=== PATIENT | female | born 1955 | race Caucasian/White ===

== ENCOUNTER 2016-07-02 08:16 | Day surgery (SDC) | payer BC ==
[~2016-07-02 08:16] MED LIST: CHOL1TAB42 PO; FERR325T PO; FURO40TA PO; GLUCOMTESTSTRIPS XX; GLUCTES12; INSU1INJ5 SQ; LACT10SO47 PO; LANC1MIS62; LEVE500 PO; LEVEMIR SQ; LIPI80TA PO; MAGN400T2 PO; POTA10TA8 PO; PRIL20TA2 PO; REME15TA PO; SPIR50TA PO; THERM PO; XIFA550T4 PO; [UNRECOGNIZED DRUG - CODE]; [UNRECOGNIZED DRUG - CODE]
[2016-07-02 08:51] VITALS: BP 161/83; PULSE 105; RESP 14; TEMP 97.8; O2SAT 98
--- NOTE | 2016-07-02 12:06 | RADRPT ---
EXAM DATE/TIME: 07/02/2016 09:02 [facility] COMPARISON: No previous studies available for comparison. EXTERNAL COMPARISON : [facility], CT ABDOMEN, W CONTRAST, July 01, 2016 US LIVER, April 24, 2016. MRI ABDOMEN W & W/O CONTRAST, April 03, 2016. INDICATIONS : Ascites. MEDICAL HISTORY : Cirrhosis. Osteoporosis. Ascites. Pancreatitis. Arthritis. Anemia. Hepatic encephalopathy. AMS. Sei zures. [place]. Degenerative disc disease. Diabetic. SURGICAL HISTORY : Tonsillectomy. Back surgery. Excision liver cancer. Left hip fracture. Carpel tunnel repair. Paracent esis. ENCOUNTER: [facility] ACUITY: 2 months PAIN SCORE: 6/10 LOCATION: [facility]. AREA EVALUATED: [facility] FINDINGS: Imaging of the abdomen and pelvis was performed to evaluate for ascites for possible paracentesis. CONCLUSION: There is not enough fluid for safe paracentesis. Patient is less distended than we p rior and has lost 6 pounds. She will call me if she needs is done this week. Lorenzo Anglin MD FACR on July 02, 2016 at 12:03 Board Certified Radiologist. This report was verified electronically.
[2016-07-03] MEDS ORDERED: POTA-243 PO (16:14)
[2016-07-10] MEDS ORDERED: INSU1INJ5 SQ (14:10)
== END 2016-07-02 10:30 | disposition home or self-care (01) ==
LOC: HRAD 08:16 → HRIP 08:21 → HRAD 10:30
PROVIDERS: ATTEND Hospitalist
DX: R18.8 Other ascites (principal); D64.9 Anemia, unspecified; E11.9 Type 2 diabetes mellitus without complications; K85.90 Acute pancreatitis without necrosis or infection, unspecified; M81.0 Age-related osteoporosis without current pathological fracture; M19.90 Unspecified osteoarthritis, unspecified site
CPT/HCPCS: 76705

== ENCOUNTER 2016-09-11 14:14 | Emergency (ER) | payer BC ==
[~2016-09-11] VITALS: Ht 149.9 cm; Wt 50.0 kg
[~2016-09-11 14:14] MED LIST changes: -LEVEMIR SQ; +POTA-243 PO
[2016-09-11 14:25] VITALS: BP 132/74; PULSE 89; RESP 16; TEMP 98.1; O2SAT 98
--- NOTE | 2016-09-11 14:38 | PD ---
HPI Chief Complaint: Abdominal Pain Time Seen by Provider: 14:38 Travel History International Travel<30 days: No Contact w/Intl Traveler<30days: No Traveled to known affect area: No History of Present Illness HPI 61-year-old female presents to the emergency department for evaluation of left- sided abdominal pain that started Thursday night, 2 days ago. She denies any fevers. She states she vomited once yesterday. No diarrhea. She denies any chest pain or shortness of breath. She currently rates the pain 10/10. Patient does have a history of diverticulitis over 13 years ago, diabetes, liver cirrhosis, liver cancer 14 years ago and is currently in remission, depression, hepatic encephalopathy. She states she had a shunt placed for her liver cirrhosis in July at [facility]. She states that her weight has been stable since. Patient does have a history of the shunt placement, tubal ligation, hip replacement, several paracentesis is in the past. Patient denies any alcohol use. No drug use. She does smoke 3 cigarettes a day. Patient states that she is concerned that she has diverticulitis due to eating walnuts recently. PFSH Past Medical History Arthritis: Yes Asthma: No Autoimmune Disease: No Anxiety: No Depression: Yes Heart Rhythm Problems: No Cancer: Yes (liver) Cardiovascular Problems: Yes High Cholesterol: No Chemotherapy: No Chest Pain: No Congestive Heart Failure: No Cirrhosis: Yes COPD: No Cerebrovascular Accident: No Diabetes: Yes Patient Takes Glucophage: No Diminished Hearing: No Endocrine: Yes Gastrointestinal Disorders: Yes (pancreatitis) GERD: No Genitourinary: Yes Headaches: No Hiatal Hernia: No Hypertension: No Immune Disorder: No Implanted Vascular Access Dvce: Yes Kidney Stones: No Musculoskeletal: Yes (degenerative disc dx of l4-5) Neurologic: Yes (hepatic encephalopathy/ altered mental status) Psychiatric: Yes Reproductive: No Respiratory: Yes Immunizations Current: Yes Migraines: No Radiation Therapy: No Renal Failure: No Seizures: Yes (jul 2015) Sickle Cell Disease: No Sleep Apnea: No Thyroid Disease: No Ulcer: No Tetanus Vaccination: > 5 Years Influenza Vaccination: Yes ?: Not LMP: OVER 10 YEARS AGO : 4 Para: 3 : 2 Past Surgical History Abdominal Surgery: Yes (excision liver CA) AICD: No Arteriovenous Shunt: No Cardiac Surgery: No Ear Surgery: No Endocrine Surgery: No Eye Surgery: No Genitourinary Surgery: No Gynecologic Surgery: No Insulin Pump: No Joint Replacement: Yes (left hip w/ IM nailing and back surgery with plate and screws) Neurologic Surgery: Yes (Back surgery with plate and screws) Oral Surgery: No Pacemaker: No Thoracic Surgery: No Tonsillectomy: Yes Other Surgery: Yes (paracentesis - MULTIPLE) Social History Alcohol Use: No Tobacco Use: Yes (3 CIGARETTES DAILY) Substance Use: No Allergies-Medications (Allergen,Severity, Reaction): Coded Allergies: Aspirin (Verified Allergy, Severe, 09/11/16) CIRRHOSSIS Reported Meds & Prescriptions Reported Meds & Active Scripts Active Lortab (Hydrocodone-Acetaminophen) 5-325 Mg Tab 1 Tab PO Q6H PRN Klor-Con 10 (Potassium Chloride) 10 Meq Tab 10 Meq PO DAILY Magnesium Oxide 400 Mg Tab 400 Mg PO DAILY Remeron (Mirtazapine) 15 Mg Tab 15 Mg PO HS Xifaxan (Rifaximin) 550 Mg Tab 550 Mg PO Q12HR Enulose Liq (Lactulose (Encephalopathy) Liq) 10 Gm/15 Ml Soln 30 Ml PO TID Prilosec (Omeprazole Magnesium) 20 Mg Tab 20 Mg PO DAILY Furosemide 40 Mg Tab 40 Mg PO DAILY Keppra (Levetiracetam) 500 Mg Tab 500 Mg PO BID Reported Calcium 500 Mg Tab 500 Mg PO TID Levemir Flextouch Pen Inj (Insulin Detemir) 300 unit/3 ML Pen 46 Units SQ HS Ferrous Sulfate 325 Mg Tab 325 Mg PO DAILY Vitamin D-3 (Cholecalciferol) 2,000 Unit Tab 2,000 Units PO BID Thera M Plus (Multivitamins/Minerals Therapeutic) 1 Tab 1 Tab PO DAILY Review of Systems Except as stated in HPI: all other systems reviewed are Neg Physical Exam Narrative GENERAL: Well-nourished, well-developed female patient, ambulatory. Afebrile. SKIN: Focused skin assessment warm/dry. HEAD: Normocephalic. Atraumatic. EYES: No scleral icterus. No injection or drainage. NECK: Supple, trachea midline. No JVD or lymphadenopathy. CARDIOVASCULAR: Regular rate and rhythm without murmurs, gallops, or rubs. RESPIRATORY: Breath sounds equal bilaterally. No accessory muscle use. Lungs sounds are clear to auscultation. GASTROINTESTINAL: Abdomen soft and nondistended. Patient has tenderness over left upper quadrant. MUSCULOSKELETAL: No cyanosis, or edema. BACK: Nontender without obvious deformity. No CVA tenderness. Data Data Last Documented VS Vital Signs Date Time Temp Pulse Resp B/P Pulse Ox O2 Delivery O2 Flow Rate FiO2 09/11/16 15:25 90 16 151/67 97 Room Air 09/11/16 14:25 98.1 Orders Morphine Inj (Morphine Inj) (09/11/16 14:45) Ondansetron Inj (Zofran Inj) (09/11/16 14:45) Complete Blood Count With Diff (09/11/16 14:36) Comprehensive Metabolic Panel (09/11/16 14:36) Lipase (09/11/16 14:36) Prothrombin Time / Inr (Pt) (09/11/16 14:36) Act Partial Throm Time (Ptt) (09/11/16 14:36) Urinalysis - C+S If Indicated (09/11/16 14:36) Ct Abd/Pel W Iv Contrast(Rout) (09/11/16 14:36) Iv Access Insert/Monitor (09/11/16 14:36) Ecg Monitoring (09/11/16 14:36) Oximetry (09/11/16 14:36) Sodium Chloride 0.9% Flush (Ns Flush) (09/11/16 14:45) Electrocardiogram (09/11/16 14:36) Iohexol 350 Inj (Omnipaque 350 Inj) (09/11/16 16:15) Potassium Chloride (Kcl) (09/11/16 17:15) Labs Laboratory Tests Test 09/11/16 09/11/16 14:50 15:30 White Blood Count 5.6 TH/MM3 Red Blood Count 3.98 MIL/MM3 Hemoglobin 12.3 GM/DL Hematocrit 35.8 % Mean Corpuscular Volume 89.8 FL Mean Corpuscular Hemoglobin 30.9 PG Mean Corpuscular Hemoglobin 34.4 % Concent Red Cell Distribution Width 15.1 % Platelet Count 62 TH/MM3 Mean Platelet Volume 7.6 FL Neutrophils (%) (Auto) 76.6 % Lymphocytes (%) (Auto) 13.6 % Monocytes (%) (Auto) 7.0 % Eosinophils (%) (Auto) 2.4 % Basophils (%) (Auto) 0.4 % Neutrophils # (Auto) 4.3 TH/MM3 Lymphocytes # (Auto) 0.8 TH/MM3 Monocytes # (Auto) 0.4 TH/MM3 Eosinophils # (Auto) 0.1 TH/MM3 Basophils # (Auto) 0.0 TH/MM3 CBC Comment AUTO DIFF Differential Total Cells 100 Counted Neutrophils % (Manual) 75 % Band Neutrophils % 12 % Lymphocytes % 7 % Monocytes % 6 % Neutrophils # (Manual) 4.9 TH/MM3 Differential Comment FINAL DIFF MANUAL Platelet Estimate LOW Platelet Morphology Comment NORMAL Ovalocytes 1+ Prothrombin Time 12.4 SEC Prothromb Time International 1.1 RATIO Ratio Activated Partial 28.0 SEC Thromboplast Time Sodium Level 140 MEQ/L Potassium Level 3.1 MEQ/L Chloride Level 107 MEQ/L Carbon Dioxide Level 21.0 MEQ/L Anion Gap 12 MEQ/L Blood Urea Nitrogen 17 MG/DL Creatinine 1.04 MG/DL Estimat Glomerular Filtration 54 ML/MIN Rate Random Glucose 285 MG/DL Calcium Level 8.6 MG/DL Total Bilirubin 2.0 MG/DL Aspartate Amino Transf 33 U/L (AST/SGOT) Alanine Aminotransferase 23 U/L (ALT/SGPT) Alkaline Phosphatase 274 U/L Total Protein 6.9 GM/DL Albumin 2.9 GM/DL Lipase 97 U/L Urine Color YELLOW Urine Turbidity CLEAR Urine pH 6.5 Urine Specific [place] 1.007 Urine Protein NEG mg/dL Urine Glucose (UA) NEG mg/dL Urine Ketones NEG mg/dL Urine Occult Blood NEG Urine Nitrite NEG Urine Bilirubin NEG Urine Urobilinogen LESS THAN 2.0 MG/DL Urine Leukocyte Esterase MOD Urine RBC 1 /hpf Urine WBC 4 /hpf Urine Squamous Epithelial 2 /hpf Cells Urine Bacteria RARE /hpf Urine Hyaline Casts 2 /lpf Microscopic Urinalysis Comment CULT NOT INDICATED MDM Medical Decision Making Medical Screen Exam Complete: Yes Emergency Medical Condition: Yes Medical Record Reviewed: Yes Interpretation(s) Last Impressions Abdomen/Pelvis CT 09/11/16 9106 Signed Impressions: Service Date/Time: September 16:13 - CONCLUSION: No new acute CT findings in the abdomen or pelvis Anuj Perez MD Differential Diagnosis Diverticulitis versus UTI versus pancreatitis versus cholecystitis Narrative Course 61-year-old female presents to the emergency department for evaluation of abdominal pain for 2 days. EKG, CBC, CMP, lipase, PTT, PTT/INR, UA are ordered and pending. Patient is given morphine 4 mg IV and Zofran 4 mg IV for pain. CT the abdomen/pelvis with IV contrast is ordered and pending. EKG shows sinus rhythm, heart rate 79, no acute ST changes. CBC shows low platelets at 62. However, according to previous labs, this is chronic for patient. CMP shows hypokalemia of 3.1, creatinine 1.04, bilirubin 2.0, alkaline phosphatase 274. Lipase is 97. Coags show no acute abnormality. UA shows moderate leukocyte esterase, but only 4 WBC, culture not indicated. CT of the abdomen/pelvis shows no acute findings. The patient states she is on potassium at home. She does not want much potassium medication here due to this. She is given 20 meq potassium by mouth. She is instructed to follow-up with her terra cotta setter. She is given a copy of her CT report. She is to return for any acute worsening of symptoms. Patient verbalizes agreement for this. My attending physician, Dr. Cuellar, agrees with plan and disposition. The patient was discharged in stable condition with instructions, including return instructions and follow up instructions. Diagnosis Primary Impression: Abdominal pain Qualified Code: R10.12 - Left upper quadrant pain Referrals: Medicare Sales Representative 2 days Patient Instructions: Abdominal Pain (ED), General Instructions, Narcotic given in the ED Additional Instructions: Follow-up with your terra cotta setter. Take Lortab as directed as needed for pain. Caution this can make you drowsy so do not drive after taking. Follow-up with your primary care physician. Return to the emergency department for any acute worsening of symptoms. Med/Other Pt SpecificInfo: Prescription(s) given Scripts Hydrocodone-Acetaminophen (Lortab)5-325 Mg Tab1 Tab PO Q6H PRN (PAIN) #12 TAB Ref 0 Prov:Salomon Cuellar MD 09/11/16 Disposition: 01 DISCHARGE HOME Condition: Stable Katy Goldstein Sep 11, 2016 14:38
[2016-09-11] MEDS ORDERED: SODIUM CHLORIDE 0.9% FLUSH 10 ML FLUSH IV FLUSH PRN (14:45)
[2016-09-11] MEDS ORDERED: ONDANSETRON HCL 4 MG/2 ML VIAL IV PUSH ONE (14:45)
[2016-09-11] MEDS ORDERED: MORPHINE SULFATE 4 MG/ML INJ IV PUSH ONE (14:45)
[2016-09-11] MEDS ORDERED: INSU1INJ5 SQ (15:14)
[2016-09-11] MEDS ORDERED: CALC500T42 PO (15:14)
[2016-09-11 15:25] VITALS: BP 151/67; PULSE 90; RESP 16; O2SAT 97
[2016-09-11 15:27] LABS: AUTOMATED NEUTROPHIL # 4.3 TH/MM3 (1.8-7.7); BASOPHIL % 0.4 % (0.0-2.0); EOSINOPHIL # 0.1 TH/MM3 (0-0.4); EOSINOPHIL % 2.4 % (0.0-4.0); HEMATOCRIT 35.8 % (35.0-46.0); LYMPH % 13.6 % (9.0-44.0); LYMPHOCYTE # 0.8 TH/MM3 (1.0-4.8); MEAN CELL VOLUME 89.8 FL (80.0-100.0); MEAN CORPUSCULAR HEMOGLOBIN 30.9 PG (27.0-34.0); MEAN CORPUSCULAR HGB CONC 34.4 % (32.0-36.0); NEUT % 76.6 % (16.0-70.0); PLATELET COUNT 62 TH/MM3 (150-450); RED BLOOD COUNT 3.98 MIL/MM3 (4.00-5.30); RED CELL DISTRIBUTION WIDTH 15.1 % (11.6-17.2); WHITE BLOOD COUNT 5.6 TH/MM3 (4.0-11.0)
[2016-09-11 15:33] LABS: HEMO FLAGS AUTO DIFF
[2016-09-11 15:41] LABS: INTERNATIONAL NORMALIZED RATIO 1.1 RATIO; PROTHROMBIN TIME - PATIENT 12.4 SEC (9.8-11.6)
[2016-09-11 15:45] LABS: ALT (GPT) 23 U/L (10-53); ANION GAP 12 MEQ/L (5-15); AST (GOT) 33 U/L (15-37); BLOOD UREA NITROGEN 17 MG/DL (7-18); CHLORIDE 107 MEQ/L (98-107); GLOMERULAR FILTRATION RATE 54 ML/MIN (>89); POTASSIUM 3.1 MEQ/L (3.5-5.1); SODIUM (NA) 140 MEQ/L (136-145)
[2016-09-11 15:47] LABS: ALKALINE PHOSPHATASE 274 U/L (45-117)
[2016-09-11 15:54] LABS: BACTERIA, URINE RARE /hpf; BLOOD, URINE NEG (NEG); COMMENT (UR) CULT NOT INDICATED; CULTURE IF INDICATED CULT NOT INDICATED; GLUCOSE,URINE NEG (NEG); HYALINE CAST, URINE 2 /lpf (RARE); KETONE, URINE NEG (NEG); NITRITE,URINE NEG (NEG); PH, URINE 6.5 (5.0-8.5); SQUAMOUS EPITHELIAL CELL URINE 2 /hpf (0-5); URINE COLOR YELLOW (YELLW/STRAW)
[2016-09-11] MEDS ORDERED: IOHEXOL 350 MG/ML 10 ML VIAL (for RAD DIAG) IV ONE (16:15)
[2016-09-11 16:27] LABS: BANDS 12 % (0-6); NEUTROPHIL # MANUAL DIFF 4.9 TH/MM3 (1.8-7.7); POLYS (SEG NEUTROPHILS) 75 % (16-70); WBC DIFF SAMPLE 100
[2016-09-11 16:28] LABS: OVALOCYTES 1+ (NORMAL)
[2016-09-11 16:32] LABS: PLATELET ESTIMATE SMEAR LOW (NORMAL); PLATELET MORPHOLOGY NORMAL (NORMAL)
[2016-09-11 16:33] LABS: SCAN/DIFF FINAL DIFF MANUAL
--- NOTE | 2016-09-11 16:42 | RADRPT ---
EXAM DATE/TIME: 09/11/2016 16:13 [facility] COMPARISON: MRI ABDOMEN W & W/O CONTRAST, August 02, 2015, 11:37. INDICATIONS : Abdominal pain and nausea. IV CONTRAST: 100 cc Omnipaque 350 (iohexol) IV ORAL CONTRAST: Prescribed oral contrast ingested. RADIATION DOSE: 4.73 CTDIvol (mGy) MEDICAL HISTORY : Carcinoma, hepatocellular. SURGICAL HISTORY : Liver tumor removal and hepatic stents. ENCOUNTER: Initial ACUITY: 1 day PAIN SCALE: 10/10 LOCATION: Left lower quadrant TECHNIQUE: Volumetric scanning of the abdomen and pelvis was performed. Using automated exposure control and ad justment of the mA and/or kV according to patient size, radiation dose was kept as low as reasonably achievable to obtain optimal diagnostic quality images. FINDINGS: LOWER LUNGS: Small right pleural effusion. LIVER: Cirrhotic appearance. Calcified lesion in the dome of the right lobe may be previously treated malign lucio. This lesion appears stable to slightly smaller than previous. No new lesions identified. No diana iary ductal dilatation. Patent tips shunt identified. Multiple calcified gallstones. Previous emboliz ation of periumbilical veins. SPLEEN: Enlarged without focal lesion. PANCREAS: Within normal limits. KIDNEYS: Normal in size and shape. There is no mass, stone or hydronephrosis. ADRENAL GLANDS: Within normal limits. VASCULAR: There is no aortic aneurysm. BOWEL/MESENTERY: The stomach, small bowel, and colon demonstrate no acute abnormality. There is no free intraperitone al air or fluid. ABDOMINAL WALL: Within normal limits. RETROPERITONEUM: There is no lymphadenopathy. BLADDER: No wall thickening or mass. REPRODUCTIVE: Within normal limits. INGUINAL: There is no lymphadenopathy or hernia. MUSCULOSKELETAL: Previous lumbar hardware fusion and pinning of the left hip. CONCLUSION: No new acute CT findings in the abdomen or pelvis Anuj Perez MD on September 11, 2016 at 16:30 Board Certified Radiologist. This report was verified electronically.
[2016-09-11] MEDS ORDERED: HYDR-3533 PO (17:08)
[2016-09-11] MEDS ORDERED: POTASSIUM CHLORIDE 20 MEQ CONTROLLED RELEASE TAB PO ONE (17:15)
[2016-09-11 17:30] VITALS: BP 148/74; PULSE 85; RESP 16; O2SAT 97
--- NOTE | 2016-09-12 13:37 | EKG ---
Date Performed: 09/11/2016 Time Performed: 15:11:32 PTAGE: 61 years EKG: Sinus rhythm PROLONGED QT INTERVAL ABNORMAL ECG Compared to prior tracing no significant change PREVIOUS TRACING : 12/29/2015 12.01 DOCTOR: Hill Baez Interpretating Date/Time 09/12/2016 13:36:01
== END 2016-09-11 18:04 | disposition home or self-care (01) ==
LOC: NEPD 14:14
DX: R10.12 Left upper quadrant pain (principal); F17.210 Nicotine dependence, cigarettes, uncomplicated
CPT/HCPCS: 74177; 80053; 81001; 83690; 85007; 85027; 85610; 85730; 93005; 96374; 96375; 99284; J2270; J2405; Q9967